=== PATIENT | female | born 1975 | race Caucasian/White ===

== ENCOUNTER 2016-09-19 07:21 | Day surgery (SDC) | payer BC ==
[~2016-09-19] VITALS: Ht 165.1 cm; Wt 81.3 kg
[~2016-09-19 07:21] MED LIST: SYNTHROID25 MCG PO
[2016-09-19 07:37] VITALS: BP 132/81
[2016-09-19 11:12] VITALS: BP 146/76
[2016-09-19 12:15] VITALS: BP 152/77
== END 2016-09-19 12:15 | disposition home or self-care (01) ==
LOC: SDC 07:21
PROC: 0UBC7ZX Excision of Cervix, Via Natural or Artificial Opening, Diagnostic (ICD-10-PCS; principal; 2016-09-19)
DX: D06.7 Carcinoma in situ of other parts of cervix (principal); J45.909 Unspecified asthma, uncomplicated; E03.9 Hypothyroidism, unspecified; N88.2 Stricture and stenosis of cervix uteri
CPT/HCPCS: 88305; 88307; J1100; J1885; J2250; J2405; J3010